=== PATIENT | female | born 1970 | race Caucasian/White ===

== ENCOUNTER 2020-09-14 04:07 | Emergency (ER) | payer BC, OTHER ==
[2020-09-14] MEDS ORDERED: Sulfameth/Trimethoprim DS 800-160mg TAB ONE (04:38)
== END 2020-09-14 04:42 | disposition home or self-care (01) ==
LOC: BURERS 04:07
DX: J34.0 Abscess, furuncle and carbuncle of nose (principal)
CPT/HCPCS: 99283